=== PATIENT | male | born 1960 | race Asian ===

== ENCOUNTER 2018-02-14 15:57 | Inpatient (IN) | payer OTHER ==
[2018-02-14 16:29] LABS: BASOPHILS # (AUTO) 0.2 10^3/uL (0.0-0.1); BASOPHILS % (AUTO) 2.2 %; EOSINOPHILS # (AUTO) 0.2 10^3/uL (0.0-0.7); HGB - HEMOGLOBIN 12.3 g/dL (14.0-18.0); LYMPHOCYTES # (AUTO) 1.1 10^3/uL (1.5-3.5); LYMPHOCYTES % (AUTO) 14.6 %; MEAN CORPUSCULAR HGB CONC 31.5 g/dL (32.0-36.0); MEAN CORPUSCULAR VOLUME 85.7 fL (80.0-94.0); MEAN PLATELET VOLUME 9.8 fL (7.4-11.4); MONOCYTES # (AUTO) 0.8 10^3/uL (0.0-1.0); MONOCYTES % (AUTO) 9.7 %; NEUTROPHILS # (AUTO) 5.5 10^3/uL (1.5-6.6); NEUTROPHILS % (AUTO) 70.5 %; PLT - PLATELET COUNT 216 10^3/uL (130-450); RED BLOOD COUNT 4.55 10^6/uL (4.70-6.10); RED CELL DISTRIBUTION WIDTH 12.6 % (12.0-15.0); WHITE BLOOD COUNT 7.8 x10^3/uL (4.8-10.8)
--- NOTE | 2018-02-14 16:32 | ED Physician Documentation ---
History of Present Illness - Stated complaint Stated Complaint: LOW SODIUM/SENT BY DOC - Chief complaint Chief Complaint: General - History obtained from History obtained from: Patient, Family - History of Present Illness Timing: Today Pain level max: 0 Pain level now: 0 - Additonal information Additional information: 57-year-old male, history of diabetes who was taken off of his medications 2 months ago. States his blood sugar was [place] [facility] [place] [facility] and was told to come here for evaluation. He has no complaints. Nothing makes it better or worse. Patient states he was on glipizide and Janumet Review of Systems Ten Systems: 10 systems reviewed and negative Constitutional: denies: Fever, Chills Eyes: denies: Decreased vision Ears: denies: Ear pain Nose: denies: Rhinorrhea / runny nose, Congestion Throat: denies: Sore throat Cardiac: denies: Chest pain / pressure Respiratory: denies: Cough GI: denies: Abdominal Pain, Nausea, Vomiting, Diarrhea Skin: denies: Rash Musculoskeletal: denies: Neck pain, Back pain Neurologic: denies: Headache PD PAST MEDICAL HISTORY - Past Medical History Cardiovascular: Hypertension, High cholesterol Endocrine/Autoimmune: Type 2 diabetes - Past Surgical History Past Surgical History: No - Present Medications Home Medications: Ambulatory Orders Medication Instructions Recorded Confirmed Aspirin [Aspir 81] 81 mg PO DAILY 02/10/13 02/14/18 Atorvastatin Calcium 40 mg PO HS 02/10/13 02/14/18 Telmisartan [Micardis] 80 mg PO DAILY 02/10/13 02/14/18 Chlorthalidone 25 mg PO DAILY 02/14/18 02/14/18 Labetalol HCl 200 mg PO BID 02/14/18 02/14/18 - Allergies Allergies/Adverse Reactions: Allergies Allergy/AdvReac Type Severity Reaction Status Date / Time hydrochlorothiazide Allergy Severe Unknown Verified 02/14/18 17:57 - Social History Does the pt smoke?: No Smoking Status: Never smoker Does the pt drink ETOH?: No Does the pt have substance abuse?: No PD ED PE NORMAL - Vitals Vital signs reviewed: Yes - General General: Alert and oriented X 3, No acute distress, Well developed/nourished - HEENT HEENT: Moist mucous membranes - Neck Neck: Supple, no meningeal sign - Cardiac Cardiac: RRR, Strong equal pulses - Respiratory Respiratory: No respiratory distress, Clear bilaterally - Abdomen Abdomen: Soft, Non tender, Non distended - Back Back: No CVA TTP, No spinal TTP - Derm Derm: Warm and dry - Extremities Extremities: No edema - Neuro Neuro: Alert and oriented X 3 - Psych Psych: Normal mood, Normal affect Results - Vitals Vitals: Vital Signs - 24 hr 02/14/18 16:00 Temperature 36.1 C L Heart Rate 70 Respiratory 16 Rate Blood Pressure 154/94 H O2 Saturation 99 Oxygen O2 Source Room air - Labs Labs: Laboratory Tests 02/14/18 02/14/18 12 16:07 16:18 16:18 WBC 7.8 RBC 4.55 L Hgb 12.3 L Hct 39.1 L MCV 85.7 MCH 27.0 MCHC 31.5 L RDW 12.6 Plt Count 216 MPV 9.8 Neut # (Auto) 5.5 Lymph # (Auto) 1.1 L [place] # (Auto) 0.8 Eos # (Auto) 0.2 Baso # (Auto) 0.2 H Absolute Nucleated RBC 0.00 Nucleated RBC % 0.0 PT INR Sodium 112 L* Potassium 4.7 Chloride 78 L* Carbon Dioxide 21 Anion Gap 13.0 BUN 45 H Creatinine 2.0 H Estimated GFR (MDRD) 34 L Glucose 1138 H* Calcium 8.9 Total Bilirubin 0.7 AST 26 ALT 35 Alkaline Phosphatase 79 Total Protein 8.6 H Albumin 4.3 Globulin 4.3 H Albumin/Globulin Ratio 1.0 Lipase 55 H Urine Color YELLOW Urine Clarity CLEAR Urine pH 6.0 Ur Specific [place] <=1.005 Urine Protein NEGATIVE Urine Glucose (UA) >=1000 H Urine Ketones NEGATIVE Urine Occult Blood TRACE-LYSE Urine Nitrite NEGATIVE Urine Bilirubin NEGATIVE Urine Urobilinogen 0.2 (NORMAL) Ur Leukocyte Esterase NEGATIVE Ur Microscopic Review NOT INDICATED Urine Culture Comments NOT INDICATED Serum Ketones 02/14/18 02/14/18 16:18 16:18 WBC RBC Hgb Hct MCV MCH MCHC RDW Plt Count MPV Neut # (Auto) Lymph # (Auto) [place] # (Auto) Eos # (Auto) Baso # (Auto) Absolute Nucleated RBC Nucleated RBC % PT 11.5 INR 1.0 Sodium Potassium Chloride Carbon Dioxide Anion Gap BUN Creatinine Estimated GFR (MDRD) Glucose Calcium Total Bilirubin AST ALT Alkaline Phosphatase Total Protein Albumin Globulin Albumin/Globulin Ratio Lipase Urine Color Urine Clarity Urine pH Ur Specific [place] Urine Protein Urine Glucose (UA) Urine Ketones Urine Occult Blood Urine Nitrite Urine Bilirubin Urine Urobilinogen Ur Leukocyte Esterase Ur Microscopic Review Urine Culture Comments Serum Ketones NEGATIVE PD MEDICAL DECISION MAKING - ED course Complexity details: reviewed results, re-evaluated patient, considered differential, d/w patient, d/w employment consultant ED course: Patient is a 57-year-old male, diabetic who presents to the emergency department with hyperglycemic hyperosmolar nonketotic state. Started on insulin drip. Given IV fluids. Will admit the patient for further care. Discussed with Dr. Sánchez, hospitalist who accepts. This document was made in part using voice recognition software. While efforts are made to proofread this document, sound alike and grammatical errors may occur. Departure - Departure Disposition: 66 [facility] DC/Xfer Clinical Impression: Hyperglycemia, Hyponatremia, Dehydration, Hyperosmolar non-ketotic state in patient with type 2 diabetes mellitus Condition: Stable Discharge Date/Time: 02/14/18 18:17
[2018-02-14 16:43] LABS: ALBUMIN 4.3 g/dL (3.2-5.5); BILIRUBIN,TOTAL 0.7 mg/dL (0.2-1.0); CALCIUM 8.9 mg/dL (8.5-10.3); TOTAL PROTEIN 8.6 g/dL (6.7-8.2)
[2018-02-14] MEDS ORDERED: ELECTROLYTE-A SOLUTION 2,000 ML IV ONE (16:44)
[2018-02-14] MEDS ORDERED: SODIUM CHLORIDE FLUSH 0.9% 10 ML SYRINGE IVP PRN (17:17)
[2018-02-14] MEDS ORDERED: TEMAZEPAM 15 MG CAPSULE PO PRN (17:17)
[2018-02-14] MEDS ORDERED: ACETAMINOPHEN 325 MG TABLET PO PRN (17:17)
[2018-02-14] MEDS: INSULIN REGULAR HUMAN 100 UNIT in SODIUM CHLORIDE 0.9% 100ML 99 ML IV STA ×2 (17:23→18:29)
[2018-02-14 17:53] LABS: VBG PCO2 40.6 mmHg (41-51); VBG PH 7.387 (7.31-7.41); VBG PO2 81.8 mmHg (25-47); VBG TOTAL CO2 25.1 mmol/L (24-29)
[2018-02-14 17:54] LABS: BILIRUBIN,URINE NEGATIVE (NEGATIVE); GLUCOSE, URINE (UA) >=1000 mg/dL (NEGATIVE); KETONES,URINE (UA) NEGATIVE (NEGATIVE); LEUKOCYTE ESTERASE, URINE NEGATIVE (NEGATIVE); NITRITE,URINE NEGATIVE (NEGATIVE); OCCULT BLOOD,URINE TRACE-LYSE (NEGATIVE); PROTEIN,URINE NEGATIVE (NEGATIVE); UROBILINOGEN,URINE 0.2 (NORMAL) E.U./dL (NORMAL)
[2018-02-14 17:59] LABS: CLARITY,URINE CLEAR (CLEAR)
[2018-02-14] MEDS ORDERED: SODIUM CHLORIDE 0.9% 1,000 ML IV SCH (18:00)
[2018-02-14 18:12] LABS: PT - PROTHROMBIN TIME 11.5 secs (9.9-12.6)
[2018-02-14 18:31] LABS: CALCIUM 8.7 mg/dL (8.5-10.3); CREATININE 1.9 mg/dL (0.6-1.2); MAGNESIUM 2.5 mg/dL (1.7-2.8)
[2018-02-14 18:54] LABS: MUDS CUTOFF CONCENTRATIONS CUTOFF CONC BELOW:
[2018-02-14] MEDS ORDERED: INSULIN REGULAR HUMAN 100 UNIT in SODIUM CHLORIDE 0.9% 100ML 99 ML IV SCH (19:00)
[2018-02-14 19:12] LABS: AMPHETAMINE SCREEN,URINE NEGATIVE (NEGATIVE); BENZODIAZEPINES SCREEN, URINE NEGATIVE (NEGATIVE); COCAINE SCREEN URINE NEGATIVE (NEGATIVE); METHADONE SCREEN, URINE NEGATIVE (NEGATIVE); METHAMPHETAMINES SCREEN, URINE NEGATIVE (NEGATIVE); OPIATE SCREEN, URINE NEGATIVE (NEGATIVE); OXYCODONE SCREEN, URINE NEGATIVE (NEGATIVE); PROPOXYPHENE SCREEN, URINE NEGATIVE (NEGATIVE); TRICYCLIC ANTIDEPRESSANT,URINE NEGATIVE (NEGATIVE)
--- NOTE | 2018-02-14 19:23 | HISTORY & PHYSICAL EXAMINATION ---
DATE OF SERVICE: 02/14/2018 Physician: Ekta Sánchez MD HISTORY OF PRESENT ILLNESS: This is a 57-year-old male of [place] background, who has a history of type 2 diabetes, was on Janumet and Glipizide, which were apparently discontinued by his primary care provider when he had excellent glucose control with a plan to start a once a week Insulin protocol an several months.. He also has a history of hypertension and hyperlipidemia. The patient had a routine lab test done that showed a very high glucose level and the PCP's office sent him to the emergency room. There, he was found to have a blood glucose of 1138 with sodium of 112 and BUN of 45 with creatinine of 2.0 and is being admitted for hyperglycemia and electrolyte management and dehydration with CHIDI. PAST MEDICAL HISTORY: Diabetes. He has been off of his oral agents for 2 months, is not on any other management for his diabetes. History of hypertension and hyperlipidemia. FAMILY HISTORY: No inherited diseases. SOCIAL HISTORY: He is a smoker, drinks alcohol (beer), rarely uses marijuana, no other illicit drugs. ALLERGIES: HCTZ. MEDICATIONS: 1. Telmisartan 80 mg daily. 2. Chlorthalidone, unknown dose daily. 3. Labetalol 200 mg b.i.d. 4. Lipitor 40 mg at night 5. Baby aspirin daily. 6. Two months ago, he was also on glipizide and Janumet. REVIEW OF SYSTEMS: He has no significant complaints but admits to thirst and increased urination. A comprehensive review of systems was performed and the pertinent positives are listed, the rest are negative. PHYSICAL EXAMINATION VITAL SIGNS: Blood pressure 140/96, heart rate 70, afebrile, temperature low 93 degrees Fahrenheit. Room air saturation 99%. HEENT: Shows dry oral mucosa. NECK: Without JVD or carotid bruits. LUNGS: Clear. HEART: Heart sounds are normal. ABDOMEN: Soft, nontender. No organomegaly. EXTREMITIES: Without edema. No skin tenting. NEUROLOGIC: Intact. LABORATORY DATA: Sodium 112, potassium 4.7. BUN 45, creatinine 2.0, glucose 1138, magnesium 2.5, normal bilirubin and liver tests, albumin normal at 4.3, lipase high at 55. White blood count 7.8, hemoglobin 12.3 with normal MCV, platelet count normal. His blood gas showed pH of 7.38. Urinalysis was unremarkable. INR normal at 1.0. Serum toxicology showed negative serum ketones. No chest x-ray done. No EKG done. IMPRESSION AND DIAGNOSES: 1. Diabetes with hyperosmolar nonketotic state. 2. Hyponatremia, a portion of this is pseudohyponatremia because of the very elevated serum glucose. 3. Dehydration. 4. Acute kidney injury. 5. Hypertension. PLAN: Admit the patient to the ICU on an insulin drip and saline. His management will be similar to DKA management, but without the serum ketone checks and this will include hydration with saline, low dose insulin drip for lowering of the serum glucose, fingerstick blood glucose checks, close followup of his electrolytes, BUN and creatinine. An Echo may be considered because of his hypertension, to evaluate for LVH and the LVEF. He will be either restarted on oral agents or have a new regimen of insulin, following this admission. CODE STATUS: FULL CODE. DEEP VENOUS THROMBOSIS PROPHYLAXIS: Pharmacologic using heparin subcu. ATTESTATION: The patient is expected to be discharged or transferred to another facility to 96 hours: Yes. cc: Marcela Peng MD TD: 02/14/2018 18:51 MTDD
[2018-02-14 19:41] LABS: CALCIUM 9.3 mg/dL (8.5-10.3); CREATININE 1.7 mg/dL (0.6-1.2); MAGNESIUM 2.8 mg/dL (1.7-2.8)
[2018-02-14] MEDS: ATORVASTATIN 40 MG TABLET PO SCH (20:27)
[2018-02-14] MEDS: HEPARIN 5,000 UNIT/ML VIAL SUBQ SCH (20:27)
[2018-02-14] MEDS: SODIUM CHLORIDE FLUSH 0.9% 10 ML SYRINGE IVP SCH (21:15)
[2018-02-14] MEDS: NS W/20 MEQ KCL 1,000 ML IV SCH (21:16)
[2018-02-14] MEDS: PANTOPRAZOLE 40 MG TABLET PO SCH (21:16)
[2018-02-14] MEDS: INSULIN ASPART 300 UNIT/3 ML PEN SUBQ SCH (21:17)
[2018-02-14] MEDS: INSULIN GLARGINE 300 UNIT/3 ML PEN SUBQ SCH (21:18)
[2018-02-15 05:49] LABS: BASOPHILS # (AUTO) 0.1 10^3/uL (0.0-0.1); EOSINOPHILS # (AUTO) 0.6 10^3/uL (0.0-0.7); EOSINOPHILS % (AUTO) 6.2 %; HGB - HEMOGLOBIN 11.9 g/dL (14.0-18.0); LYMPHOCYTES # (AUTO) 2.6 10^3/uL (1.5-3.5); LYMPHOCYTES % (AUTO) 28.4 %; MEAN CORPUSCULAR HEMOGLOBIN 26.9 pg (27.0-31.0); MEAN CORPUSCULAR HGB CONC 32.8 g/dL (32.0-36.0); MEAN CORPUSCULAR VOLUME 82.1 fL (80.0-94.0); MEAN PLATELET VOLUME 9.4 fL (7.4-11.4); MONOCYTES # (AUTO) 0.8 10^3/uL (0.0-1.0); NEUTROPHILS # (AUTO) 5.1 10^3/uL (1.5-6.6); NEUTROPHILS % (AUTO) 55.4 %; PLT - PLATELET COUNT 222 10^3/uL (130-450); RED BLOOD COUNT 4.44 10^6/uL (4.70-6.10); WHITE BLOOD COUNT 9.2 x10^3/uL (4.8-10.8)
[2018-02-15 06:05] LABS: CALCIUM 8.9 mg/dL (8.5-10.3); CREATININE 1.3 mg/dL (0.6-1.2)
[2018-02-15 06:14] LABS: MAGNESIUM 2.2 mg/dL (1.7-2.8); PHOSPHORUS 3.1 mg/dL (2.5-4.6)
[2018-02-15] MEDS: NS W/20 MEQ KCL 1,000 ML IV SCH ×2 (06:28→16:20)
[2018-02-15] MEDS: INSULIN ASPART 300 UNIT/3 ML PEN SUBQ SCH ×5 (08:08→20:39)
[2018-02-15] MEDS: HEPARIN 5,000 UNIT/ML VIAL SUBQ SCH ×2 (08:19→20:32)
[2018-02-15] MEDS: NEUTRA-PHOS 250 MG TABLET PO SCH ×3 (08:19→17:11)
[2018-02-15] MEDS: LOSARTAN 50 MG TABLET PO SCH (08:19)
[2018-02-15] MEDS: PANTOPRAZOLE 40 MG TABLET PO SCH ×2 (08:19→20:25)
[2018-02-15] MEDS: LABETALOL 100 MG TABLET PO SCH (08:19)
[2018-02-15] MEDS: ASPIRIN EC 81 MG TABLET PO SCH (08:19)
[2018-02-15] MEDS: SODIUM CHLORIDE FLUSH 0.9% 10 ML SYRINGE IVP SCH ×3 (08:25→23:31)
--- NOTE | 2018-02-15 12:03 | PROVIDER PROGRESS NOTE ---
Assessment/Plan - Problem List (1) Hyperosmolar non-ketotic state in patient with type 2 diabetes mellitus Assessment/Plan: Improving. He is transitioning to Lantus sq and Reg ss Insulin today and is on a carb- controlled diet. (2) Hyponatremia Assessment/Plan: Improving with saline hydration and glu level dropping. Continue iv saline today due to CHIDI. (3) Dehydration Assessment/Plan: Pt still dehydrated, as per BUN/creat levels. Continue rehydration. Follow BMP, check PO4. (4) CHIDI (acute kidney injury) Assessment/Plan: Improved BUM/ creat with saline hydration. Continue iv saline yet today. Follow Renal labs daily. - Current Meds Current Meds: Current Medications Generic Name Dose Route Start Last Admin Trade Name Freq PRN Reason Stop Dose Admin Aspirin 81 mg 02/15/18 09:00 02/15/18 08:19 Ecotrin PO 81 mg DAILY DEIRDRE Administration Atorvastatin Calcium 40 mg 02/14/18 21:00 02/14/18 20:27 Lipitor PO 40 mg HS DEIRDRE Administration Heparin Sodium (Porcine) 5,000 unit 02/14/18 21:00 02/15/18 08:19 SUBQ 5,000 unit BID DEIRDRE Administration Potassium Chloride/Sodium Chloride 1,000 mls @ 100 mls/hr 02/14/18 22:00 02/15/18 10:00 Normal Saline 0.9% W/20 Meq Kcl IV 100 mls/hr .Q10H DEIRDRE Infusion Insulin Aspart 1 - 9 unit 02/15/18 12:00 02/15/18 11:54 Novolog SUBQ 9 unit 0800,1200,1700,2100 DEIRDRE Administration Protocol Insulin Glargine 10 unit 02/14/18 21:00 02/14/18 21:18 Lantus Solostar SUBQ 10 unit QPM DEIRDRE Administration Labetalol HCl 100 mg 02/15/18 09:00 02/15/18 08:19 Trandate PO 100 mg DAILY DEIRDRE Administration Losartan Potassium 100 mg 02/15/18 09:00 02/15/18 08:19 Cozaar PO 100 mg DAILY DEIRDRE Administration Pantoprazole Sodium 40 mg 02/14/18 22:00 02/15/18 08:19 Protonix PO 40 mg BID DEIRDRE Administration Sodium Chloride 10 ml 02/15/18 01:00 02/15/18 08:25 Normal Saline Flush 0.9% IVP 10 ml 0100,0900,1700 DEIRDRE Administration Sodium Phosphate 250 mg 02/15/18 08:00 02/15/18 08:19 K-Phos Neutral PO 02/16/18 06:00 250 mg TIDWM DEIRDRE Administration - Lab Result Fish Bone Diagrams: 02/15/18 04:59 02/15/18 04:59 - Additional Planning My Orders: My Active Orders 02/14/18 17:17 Activity Orders [RC] Routine Daily Weight [RC] 0600 IO [RC] Q4H IV Insert [RC] ONCE Initiate Bowel Care Protocol [RC] QSHIFT Initiate Flu Vaccine Screening [RC] ONCE Initiate ICU Electrolyte Prot. [RC] .protocol Initiate Line Care Protocol [RC] .protocol Initiate Personal Care Protoco [RC] .protocol Initiate Pneumonia Vaccine Scr [RC] ONCE Vital Signs [RC] Q4HR Acetaminophen [Tylenol] 650 mg PO Q4HR PRN Sodium Chloride Flush 0.9% [Normal Saline Flush 0.9%] 10 ml IVP PRN PRN Temazepam [Restoril] 15 mg PO QPM PRN Code Status [OTHERS] Routine Condition of Patient [OTHERS] Routine DVT Prophylaxis [OTHERS] Routine 02/14/18 17:20 Oral Care - Nursing [RC] Routine Oxygen Therapy [RC] .PRN Telemetry- [RC] Routine 02/14/18 17:27 Straight Catheter Insertion [RC] PRN 02/14/18 21:00 Atorvastatin [Lipitor] 40 mg PO HS Heparin 5,000 unit SUBQ BID 02/14/18 22:00 Pantoprazole [Protonix] 40 mg PO BID 02/14/18 Dinner Carb-controlled Diet [DIET] 02/15/18 01:00 Sodium Chloride Flush 0.9% [Normal Saline Flush 0.9%] 10 ml IVP 0100,0900,1700 02/15/18 04:59 A1C [CHEM] Routine 02/15/18 08:00 Neutra-Phos [K-Phos Neutral] 250 mg PO TIDWM 02/15/18 09:00 Aspirin EC [Ecotrin] 81 mg PO DAILY Labetalol [Trandate] 100 mg PO DAILY Losartan [Cozaar] 100 mg PO DAILY 02/15/18 12:00 Insulin Aspart [NovoLOG] 1 - 9 unit SUBQ 0800,1200,1700,2100 02/16/18 05:00 BMP - BASIC METABOLIC PANEL [CHEM] DAILYLAB CBC - COMP BLD CT W/AUTO DIFF [HEME] DAILYLAB PHOSPHORUS [CHEM] DAILYLAB 02/17/18 05:00 CBC - COMP BLD CT W/AUTO DIFF [HEME] DAILYLAB PHOSPHORUS [CHEM] DAILYLAB Subjective - Subjective Patient Reports: No Complaints Objective Vital Signs: Vital Signs - 24 hr 02/14/18 02/14/18 02/14/18 16:00 18:21 19:17 Temperature 36.1 C L 36.8 C 36.7 C Heart Rate 70 Heart Rate [ 71 Monitoring electrodes] Respiratory 16 22 Rate Blood Pressure 154/94 H Blood Pressure 139/96 H [Left Brachial artery] O2 Saturation 99 98 02/14/18 02/14/18 02/14/18 20:30 21:00 22:00 Temperature Heart Rate Heart Rate [ 74 80 79 Monitoring electrodes] Respiratory 25 H 22 19 Rate Blood Pressure Blood Pressure 133/95 H 128/82 H 127/75 [Left Brachial artery] O2 Saturation 98 98 97 02/14/18 02/15/18 02/15/18 23:00 00:00 01:00 Temperature 36.7 C Heart Rate Heart Rate [ 80 74 74 Monitoring electrodes] Respiratory 20 18 18 Rate Blood Pressure Blood Pressure 123/74 125/84 H 116/88 H [Left Brachial artery] O2 Saturation 97 99 97 02/15/18 02/15/18 02/15/18 02:00 02:41 03:00 Temperature 36.8 C Heart Rate Heart Rate [ 68 68 Monitoring electrodes] Respiratory 15 16 Rate Blood Pressure Blood Pressure 134/90 H 122/87 H [Left Brachial artery] O2 Saturation 99 97 02/15/18 02/15/18 02/15/18 04:00 05:00 06:00 Temperature Heart Rate Heart Rate [ 72 69 68 Monitoring electrodes] Respiratory 16 17 14 Rate Blood Pressure Blood Pressure 127/82 H 140/103 H 131/87 H [Left Brachial artery] O2 Saturation 97 98 97 02/15/18 02/15/18 07:00 08:00 Temperature Heart Rate Heart Rate [ 64 62 Monitoring electrodes] Respiratory 11 L 14 Rate Blood Pressure Blood Pressure 135/96 H 143/100 H [Left Brachial artery] O2 Saturation 99 98 Oxygen O2 Source Room air I&O (Last 24 Hrs): Intake and Output Totals x24h 02/13/18 02/14/18 02/15/18 23:59 23:59 23:59 Intake Total 2541.652 3934.000 Output Total 500 0 Balance 8065.385 0240.000 General: Alert, Oriented x3 HEENT: Mucous membr. moist/pink Neck: Supple, No JVD Neuro: Non Focal Cardiovascular: Regular rate, No murmurs Respiratory: No respiratory distress, Breath sounds nml Abdomen: Soft Extremities: No edema - Results Results: Laboratory Results WBC 9.2 x10^3/uL (4.8-10.8) 02/15/18 04:59 RBC 4.44 10^6/uL (4.70-6.10) L 02/15/18 04:59 Hgb 11.9 g/dL (14.0-18.0) L 02/15/18 04:59 Hct 36.4 % (42.0-52.0) L 02/15/18 04:59 MCV 82.1 fL (80.0-94.0) 02/15/18 04:59 MCH 26.9 pg (27.0-31.0) L 02/15/18 04:59 MCHC 32.8 g/dL (32.0-36.0) 02/15/18 04:59 RDW 12.0 % (12.0-15.0) 02/15/18 04:59 Plt Count 222 10^3/uL (130-450) 02/15/18 04:59 MPV 9.4 fL (7.4-11.4) 02/15/18 04:59 Neut # (Auto) 5.1 10^3/uL (1.5-6.6) 02/15/18 04:59 Lymph # (Auto) 2.6 10^3/uL (1.5-3.5) 02/15/18 04:59 [place] # (Auto) 0.8 10^3/uL (0.0-1.0) 02/15/18 04:59 Eos # (Auto) 0.6 10^3/uL (0.0-0.7) 02/15/18 04:59 Baso # (Auto) 0.1 10^3/uL (0.0-0.1) 02/15/18 04:59 Absolute Nucleated RBC 0.00 x10^3/uL 02/15/18 04:59 Nucleated RBC % 0.0 /100WBC 02/15/18 04:59 PT 11.5 secs (9.9-12.6) 02/14/18 16:18 INR 1.0 (0.8-1.2) 02/14/18 16:18 VBG pH 7.387 (7.31-7.41) 02/14/18 17:44 VBG pCO2 40.6 mmHg (41-51) L 02/14/18 17:44 VBG pO2 81.8 mmHg (25-47) H 02/14/18 17:44 VBG HCO3 23.9 mmol/L (23-28) 02/14/18 17:44 VBG Total CO2 25.1 mmol/L (24-29) 02/14/18 17:44 VBG O2 Saturation 95.9 % (60-80) H 02/14/18 17:44 VBG Base Excess -1.0 mmol/L (-2 - +2) 02/14/18 17:44 Sodium 134 mmol/L (135-145) L 02/15/18 04:59 Potassium 4.0 mmol/L (3.5-5.0) 02/15/18 04:59 Chloride 101 mmol/L (101-111) 02/15/18 04:59 Carbon Dioxide 24 mmol/L (21-32) 02/15/18 04:59 Anion Gap 9.0 (6-13) 02/15/18 04:59 BUN 31 mg/dL (6-20) H 02/15/18 04:59 Creatinine 1.3 mg/dL (0.6-1.2) H 02/15/18 04:59 Estimated GFR (MDRD) 57 (>89) L 02/15/18 04:59 Glucose 310 mg/dL (70-100) H 02/15/18 04:59 POC Whole Bld Glucose 300 mg/dL (70 - 100) H 02/15/18 08:06 Calcium 8.9 mg/dL (8.5-10.3) 02/15/18 04:59 Phosphorus 3.1 mg/dL (2.5-4.6) 02/15/18 04:59 Magnesium 2.2 mg/dL (1.7-2.8) 02/15/18 04:59 Total Bilirubin 0.7 mg/dL (0.2-1.0) 02/14/18 16:18 AST 26 IU/L (10-42) 02/14/18 16:18 ALT 35 IU/L (10-60) 02/14/18 16:18 Alkaline Phosphatase 79 IU/L (42-121) 02/14/18 16:18 Troponin I < 0.04 ng/mL (<0.49) 02/15/18 04:59 Total Protein 8.6 g/dL (6.7-8.2) H 02/14/18 16:18 Albumin 4.3 g/dL (3.2-5.5) 02/14/18 16:18 Globulin 4.3 g/dL (2.1-4.2) H 02/14/18 16:18 Albumin/Globulin Ratio 1.0 (1.0-2.2) 02/14/18 16:18 Triglycerides 277 mg/dL (-149) H 02/15/18 04:59 Lipase 55 U/L (22-51) H 02/14/18 16:18 Urine Color YELLOW 02/14/18 16:07 Urine Clarity CLEAR (CLEAR) 02/14/18 16:07 Urine pH 6.0 PH (5.0-7.5) 02/14/18 16:07 Ur Specific [place] <=1.005 (1.002-1.030) 02/14/18 16:07 Urine Protein NEGATIVE mg/dL (NEGATIVE) 02/14/18 16:07 Urine Glucose (UA) >=1000 mg/dL (NEGATIVE) H 02/14/18 16:07 Urine Ketones NEGATIVE mg/dL (NEGATIVE) 02/14/18 16:07 Urine Occult Blood TRACE-LYSE (NEGATIVE) 02/14/18 16:07 Urine Nitrite NEGATIVE (NEGATIVE) 02/14/18 16:07 Urine Bilirubin NEGATIVE (NEGATIVE) 02/14/18 16:07 Urine Urobilinogen 0.2 (NORMAL) E.U./dL (NORMAL) 02/14/18 16:07 Ur Leukocyte Esterase NEGATIVE (NEGATIVE) 02/14/18 16:07 Ur Microscopic Review NOT INDICATED 02/14/18 16:07 Urine Culture Comments NOT INDICATED 02/14/18 16:07 Urine Opiates Screen NEGATIVE (NEGATIVE) 02/14/18 17:48 Ur Oxycodone Screen NEGATIVE (NEGATIVE) 02/14/18 17:48 Urine Methadone Screen NEGATIVE (NEGATIVE) 02/14/18 17:48 Ur Propoxyphene Screen NEGATIVE (NEGATIVE) 02/14/18 17:48 Ur Barbiturates Screen NEGATIVE (NEGATIVE) 02/14/18 17:48 Ur Tricyclics Screen NEGATIVE (NEGATIVE) 02/14/18 17:48 Ur Phencyclidine Scrn NEGATIVE (NEGATIVE) 02/14/18 17:48 Ur Amphetamine Screen NEGATIVE (NEGATIVE) 02/14/18 17:48 U Methamphetamines Scrn NEGATIVE (NEGATIVE) 02/14/18 17:48 U Benzodiazepines Scrn NEGATIVE (NEGATIVE) 02/14/18 17:48 Urine Cocaine Screen NEGATIVE (NEGATIVE) 02/14/18 17:48 U Cannabinoids Screen NEGATIVE (NEGATIVE) 02/14/18 17:48 Serum Ketones NEGATIVE (NEGATIVE) 02/14/18 16:18 - Procedures Procedures: Procedures COLONOSCOPY (11/05/13)
[2018-02-15 16:20] LABS: HB2 TOTAL 12.4 g/dL; HEMOGLOBIN A1C 1.43 g/dL; HEMOGLOBIN A1C % 12.7 % (4.6-6.2)
[2018-02-15] MEDS: ATORVASTATIN 40 MG TABLET PO SCH (20:25)
[2018-02-15] MEDS: INSULIN GLARGINE 300 UNIT/3 ML PEN SUBQ SCH (20:31)
[2018-02-15] MEDS ORDERED: INSULIN GLARGINE 300 UNIT/3 ML PEN SUBQ SCH (21:00)
[2018-02-16] MEDS: NS W/20 MEQ KCL 1,000 ML IV SCH ×2 (02:01→05:58)
[2018-02-16 05:24] LABS: BASOPHILS # (AUTO) 0.1 10^3/uL (0.0-0.1); BASOPHILS % (AUTO) 0.8 %; EOSINOPHILS # (AUTO) 0.7 10^3/uL (0.0-0.7); EOSINOPHILS % (AUTO) 6.6 %; HGB - HEMOGLOBIN 11.7 g/dL (14.0-18.0); LYMPHOCYTES # (AUTO) 3.3 10^3/uL (1.5-3.5); LYMPHOCYTES % (AUTO) 32.7 %; MEAN CORPUSCULAR HEMOGLOBIN 27.4 pg (27.0-31.0); MEAN CORPUSCULAR HGB CONC 33.6 g/dL (32.0-36.0); MEAN CORPUSCULAR VOLUME 81.7 fL (80.0-94.0); MEAN PLATELET VOLUME 8.9 fL (7.4-11.4); MONOCYTES % (AUTO) 9.8 %; NEUTROPHILS % (AUTO) 50.1 %; PLT - PLATELET COUNT 222 10^3/uL (130-450); RED BLOOD COUNT 4.28 10^6/uL (4.70-6.10); RED CELL DISTRIBUTION WIDTH 12.2 % (12.0-15.0)
[2018-02-16 05:39] LABS: CREATININE 1.1 mg/dL (0.6-1.2); PHOSPHORUS 3.8 mg/dL (2.5-4.6)
[2018-02-16] MEDS: INSULIN ASPART 300 UNIT/3 ML PEN SUBQ SCH ×2 (08:17→11:40)
[2018-02-16] MEDS: LOSARTAN 50 MG TABLET PO SCH (09:18)
[2018-02-16] MEDS: PANTOPRAZOLE 40 MG TABLET PO SCH (09:18)
[2018-02-16] MEDS: LABETALOL 100 MG TABLET PO SCH (09:18)
[2018-02-16] MEDS: SODIUM CHLORIDE FLUSH 0.9% 10 ML SYRINGE IVP SCH (09:18)
[2018-02-16] MEDS: ASPIRIN EC 81 MG TABLET PO SCH (09:18)
[2018-02-16] MEDS: HEPARIN 5,000 UNIT/ML VIAL SUBQ SCH (09:18)
[2018-02-16] MEDS ORDERED: metFORMIN 500 MG TABLET PO SCH (10:33)
--- NOTE | 2018-02-16 12:37 | Discharge Plan ---
Discharge Plan Disposition: Home, Self Care Condition: Stable Prescriptions: glipiZIDE ER [Glucotrol Xl] 5 mg PO DAILYWM #60 tablet Insulin Aspart [NovoLOG] 3 - 11 unit SUBQ 0800,1200,1700,2100 #2 pen metFORMIN [Glucophage] 1,000 mg PO BIDWM #120 tablet Sitagliptin Phosphate [Januvia] 50 mg PO BID #60 tablet Diet: Diabetic Activity Restrictions: Activity as Tolerated Shower Restrictions: No Driving Restrictions: No Instruction Topics: Diabetes Healthy Meals, Diabetes Carbs, Diabetes Type 1 Meals Snacks Ch, Diabetes Type 1 Food Facts Ch, Diabetes Carbs Fats Protein Additional Instructions or Follow Up instructions: You were admitted with severely elevated glucose levels (over 1100) and evidence of poor diabetes control with your A1c being 12.7 (preferable A1c should be < 7). You needed Insulin while here. You are being discharged with prescriptions for resuming the Januvia and Metformin and Glipizide. Also, you now have a p rescription for Regular (quick-acting) Insulin in a pen. Please follow the sliding scale you were given and administer the Regular Insulin dose according to the scale, according to your fingerstick blood glucose results, which you should check 4 times a day (before each meal and at bedtime). These prescriptions should be adjusted and can be ordered and refilled by your provider at the [facility]. You need better outpatient diabetes management. See your PCP in the next 7-10 days for management or to be referred to a Diabetic (Endocrinology) specialist. You may also come for Diabetic Education at the [facility] clinic here in the hospital, after a referral from your PCP. Resume your aspirin, Temisartan and Labetolol, but STOP taking the Hydrochlorthalidone (since you do not need a water pill, which was dehydrating you). If you have new or worsening symptoms, come to the ER. Follow-Up Care: [facility] Clinic - Diabetes Ed No Smoking: If you smoke, Please STOP! Call for help. Follow-up with: LISA WYNN MD [Primary Care Provider] -
[2018-02-16 13:25] VITALS: BP 135/93
--- NOTE | 2018-02-19 13:52 | DISCHARGE SUMMARY ---
Physician: Ekta Sánchez MD DATE OF ADMISSION: 02/14/2018 DATE OF DISCHARGE: 02/16/2018 HISTORY OF PRESENT ILLNESS: This is a 57-year-old male of [place] background who has a history of type 2 diabetes and was on Janumet mg b.i.d. and glipizide 5 mg daily, and he reports that this was discontinued about 2 months previously by his provider because of excellent glucose control, and the plan was to start at once a week insulin protocol eventually. He also has a history of hypertension and hyperlipidemia, on treatment. The patient had a routine lab test done that showed a very high glucose, and he was sent to the emergency room. In the ER, his blood tests showed a glucose of 1138, sodium of 112, BUN of 45, creatinine of 2.0, and he was admitted for management of hyperosmolar nonketotic status and dehydration with CHIDI. HOSPITAL COURSE AND DISCHARGE DIAGNOSES 1. Hyperosmolar nonketotic state in a patient with type 2 diabetes mellitus. The patient was started on an insulin drip, IV saline and had frequent monitoring of serum glucoses, electrolytes, and BUN and creatinine. He was started on a carb-controlled diet. The insulin drip was transitioned to sliding scale insulin doses. His A1c returned at 12.7, indicating poor control over the past 3 months. His glucoses were running in the 200s to 400s. He was given various options for diabetic management at the time of discharge, and he chose to return back to his oral agents and to perform fingerstick glucoses and administer regular insulin on a sliding scale protocol. These medications were prescribed at the time of discharge. The patient was advised to have followup with his PCP or an [facility] for further diabetic management, and he may come to the [facility] clinic here for diabetic education classes. 2. Hyponatremia. A portion of this was pseudohyponatremia from the very elevated serum glucose level. He was kept on saline IV hydration, and his admission sodium of 112 improved to 127 the following day and was 134 at the day of discharge. 3. Dehydration. The patient reported polyuria and polydipsia over the preceding 3-4 weeks. His oral mucosa was dry, and he had mild skin tenting on presentation. He also had prerenal azotemia, and this was managed by aggressive IV saline hydration. His thirst subsided, and he was stable at time of discharge. 4. Acute kidney injury. The patient's admission BUN and creatinine were 45 and 2.0, which corrected to 41 and 1.7 on the next day, and at the time of discharge was 31 and 1.3 after aggressive IV hydration. His blood pressure medication of Chlorthalidone was discontinued because of the need for hydration, and his blood pressure was managed with his other B BP medications only. LABORATORY AND IMAGING: Reviewed and summarized above. ALLERGIES: HYDROCHLOROTHIAZIDE WITH UNKNOWN REACTION. MEDICATIONS AT DISCHARGE 1. Aspirin 81 mg daily. 2. Lipitor 40 mg every night. 3. Labetalol 200 mg b.i.d. 4. Telmisartan 80 mg daily. 5. Glucotrol-XL 5 mg daily. 6. Glucophage 1000 mg b.i.d. 7. Januvia 50 mg b.i.d. 8. Aspart Insulin pen with a sliding scale Insulin schedule at 3 - 12 units depending on the fingerstick glucose result. CONDITION AT DISCHARGE: Stable. PHYSICAL EXAMINATION VITAL SIGNS: Blood pressure 135/93, heart rate 77 sinus rhythm, room air saturation 99%. HEENT: Unremarkable. NECK: Without JVD or carotid bruits. CHEST: Clear. HEART: Sounds normal. ABDOMEN: Soft and benign. EXTREMITIES: No edema. No skin tenting. NEUROLOGIC: Intact. FOLLOWUP: Advised to see his PCP within the next week. CODE STATUS: FULL CODE. Time required to complete this entire discharge, chart review, dictation, patient education, prescriptions: T30 minutes. cc: Marcela Peng MD TD: 02/19/2018 12:56 MTDD
== END 2018-02-16 13:45 | disposition home or self-care (01) | DRG 638 ==
LOC: ED 15:57 → ICU 17:17
PROVIDERS: ADMIT Internal Medicine; ATTEND Internal Medicine
DX: E11.00 Type 2 diabetes mellitus with hyperosmolarity without nonketotic hyperglycemic-hyperosmolar coma (NKHHC) (principal); E87.1 Hypo-osmolality and hyponatremia; N17.9 Acute kidney failure, unspecified; E11.65 Type 2 diabetes mellitus with hyperglycemia; E86.0 Dehydration; T50.2X5A Adverse effect of carbonic-anhydrase inhibitors, benzothiadiazides and other diuretics, initial encounter; I10 Essential (primary) hypertension; E78.5 Hyperlipidemia, unspecified; F17.200 Nicotine dependence, unspecified, uncomplicated; Z79.899 Other long term (current) drug therapy; Z79.82 Long term (current) use of aspirin
CPT/HCPCS: 36415; 80048; 80053; 80306; 81001; 81003; 82009; 82803; 82947; 83036; 83690; 83735; 84100; 84478; 84484; 85025; 85610; 87086; 87150; 99283; 99284